=== PATIENT | male | born 1975 | race Caucasian/White ===

== ENCOUNTER 2020-12-09 18:00 | Observation (INO) ==
[2020-12-09] MEDS ORDERED: KETOROLAC TROMETHAMINE 15 MG/ML VIAL IV ONE ×2 (20:26→23:02)
[2020-12-09] MEDS ORDERED: ONDANSETRON INJ 2 MG/ML 2 ML VIAL IV STA (20:26)
[2020-12-09] MEDS ORDERED: SODIUM CHLORIDE 0.9% 1000ML 2,000 ML IV ONE (20:26)
[2020-12-09] MEDS ORDERED: GI COCKTAIL ED USE PO ONE (20:26)
--- NOTE | 2020-12-09 20:26 | Emergency Department Note ---
Impression & Plan Abdominal pain, Cholelithiasis ED Provider Note NAME: CHAUNCEY PATIÑO AGE: 45 SEX: M : 1975 ARRIVES VIA: Walk-In INFORMANT: Patient ED PROVIDER(S): Benny Levine DO CHIEF COMPLAINT: abdominal pain HPI: Patient is a 45-year-old male who presents ER for right mid abdominal pain. This started yesterday while he was at [facility] from alcohol. He has been there for over a week. He denies any headache or change in vision. No chest pain or shortness of breath. Belly pain is worse with eating or drinking. Does have a history of gallstones. He has been seen for this twice before in the past. No other exacerbating or remitting factors. ROS: See above HPI for pertinent positives & negatives. A total of 10 systems reviewed and were otherwise negative. PAST MEDICAL HISTORY:See Below PAST SURGICAL HISTORY:See Below FAMILY HISTORY:See Below SOCIAL HISTORY:See Below HOME MEDICATIONS:See Below ALLERGIES:See Below VITALS:See Below PHYSICAL EXAMINATION: GENERAL: Sitting up in bed, alert, well appearing, well nourished, no distress, non-toxic EYE EXAM: normal conjunctiva. OROPHARYNX: no exudate, no erythema, lips, buccal mucosa, and tongue normal and mucous membranes are moist NECK: supple, no nuchal rigidity, no adenopathy, non-tender LUNGS: Clear to auscultation. Normal chest wall mechanics HEART: no murmurs, S1 normal and S2 normal ABDOMEN: abdomen soft, mild diffuse tenderness, normo-active bowel sounds, no masses, no rebound or guarding. UPPER EXTREMITIES: upper extremities are grossly normal. LOWER EXTREMITIES: No pitting edema. NEURO EXAM: Normal sensorium, cranial nerves II-XII grossly intact, normal speech, no gross weakness of arms, no gross weakness of legs. MEDICAL DECISION MAKING: Patient is a 45-year-old male who presents ER for right upper quadrant abdominal pain associate with nausea vomiting. IV was established blood work was obtained. Labs show no significant leukocytosis or anemia. BMP with mild hypokalemia. LFTs bilirubin and lipase was unremarkable. UA was clean. CT abdomen pelvis showed diverticulosis with moderate sigmoid wall thickening. Question diverticulitis or other nonspecific colitis. There is also cholelithiasis with a moderately distended gallbladder. Following this ultrasound was obtained which showed a distended gallbladder, cholelithiasis, mild wall thickening, trace pericholecystic fluid and a diffusely tender abdomen. Patient was given a dose of IV Zosyn. Discussed with general surgery Sil Taveras who admitted the patient for observation. Observation Status: Indication: abdominal pain Patient with no pertinent family history, was seen first at 1845 hrs and was necessary in order to determine medical stability and avoid unnecessary admission. Upon reevaluation, 8 hours of observation revealed that the patient should be admitted. Disposition date and time 12/10/2020 at 2:30 AM. Triage Nursing notes reviewed. Limited review of prior medical records performed Vital Signs: reviewed and remarkable for HTN Differential diagnosis: Differential diagnoses includes but is not limited to gastritis, peptic ulcer disease, GERD, gallbladder disease, pancreatitis, small bowel obstruction, acute coronary syndrome, pericarditis, ischemic bowel, irritable bowel disease, irritable bowel syndrome, appendicitis, diverticulitis, malignancy, hernia, urinary tract infection, torsion, [/ectopic (if female)], perforation, trauma, infectious. ER treatment provided: See below Diagnostics interpreted by me: ECG: Sinus rhythm rate of 69 Normal axis PVCs QTC 441 Cardiac Monitoring: An order was placed for continuous cardiac monitoring. The monitor shows a rate of 62 with sinus rhythm. Laboratory studies: As stated above and show below. Imaging studies: US RUQ: Mild distended gallbladder, and cholelithiasis, mild wall thickening, trace pericholecystic fluid, diffusely tender in the abdomen, without sonographic Mack's. Findings are nonspecific, acute cholecystitis difficult to entirely exclude. Equivocal adenomyomatosis of the gallbladder wall. No ductal dilatation, CBD 4.5 mm. No hydronephrosis of the right kidney. Fatty liver. Nonvisualized pancreas due to bowel gas. CT ABDOMEN & PELVIS With Contrast: Diverticulosis and moderate sigmoid wall thickening, could reflect acute diverticulitis, or other nonspecific colitis, correlate clinically. Cholelithiasis in a moderately distended gallbladder, nonspecific, correlate clinically as acute cholecystitis not excluded. No SBO, free air or free fluid. Normal appendix. Fatty liver. Mild bibasilar atelectasis or infiltrate. Consultation(s): Discussed with Sil Taveras patient was admitted for observation Procedures: none Critical Care: None Past Med/Surg History Social History Smoking Status: Current every day smoker Feels Safe at Home: Yes Allergies Allergies Allergy/AdvReac Type Severity Reaction Status Date / Time No Known Allergies Allergy Unverified 12/09/20 21:34 Home Meds Home Medications Medication Instructions Recorded Confirmed clonidine HCl 0.1 mg tablet 0.1 mg PO TID PRN 12/09/20 12/09/20 cyanocobalamin (vitamin B-12) 1,000 mcg PO QAM 12/09/20 12/09/20 1,000 mcg tablet (Vitamin B-12) diazepam 10 mg tablet (Valium) 10 mg PO QAM 12/09/20 12/09/20 folic acid 1 mg tablet 1 mg PO QAM 12/09/20 12/09/20 gabapentin 300 mg capsule 300 mg PO TID 12/09/20 12/09/20 hydroxyzine pamoate 50 mg capsule 50 mg PO TID PRN 12/09/20 12/09/20 (Vistaril) mirtazapine 15 mg tablet (Remeron) 15 mg PO HS 12/09/20 12/09/20 multivitamin 1 tab PO QAM 12/09/20 12/09/20 naproxen 500 mg tablet 500 mg PO TID PRN 12/09/20 12/09/20 thiamine HCl (vitamin B1) 100 mg 100 mg PO QAM 12/09/20 12/09/20 tablet Results & Data (ED) Vital Signs Vital Signs - 24 hr 12/09/20 19:19 12/09/20 20:40 12/09/20 20:44 Temperature 35.9 C L Temperature Source Temporal Artery Scan Pulse Rate 80 69 Pulse Rate [Right Finger] Pulse Rate from SpO2 Sensor 70 Pulse Rhythm [Right Finger] Pulse Strength [Right Finger] Respiratory Rate 20 15 Respiratory Effort / Characteristics Respiratory Depth Normal Respiratory Pattern Blood Pressure 166/105 H 175/102 H Blood Pressure [Right Arm] Blood Pressure Mean 125 126 Blood Pressure Mean [Right Arm] Blood Pressure Position [Right Arm] Pulse Oximetry 99 100 99 Oxygen Delivery Method Room Air Room Air Sepsis Recent Fever Within 48 Hours No Sepsis New/Unexplained Change in Mental Status No Sepsis Action Taken by Nursing No Action Required 12/09/20 21:11 12/09/20 21:30 12/09/20 22:00 Temperature Temperature Source Pulse Rate 73 67 64 Pulse Rate [Right Finger] Pulse Rate from SpO2 Sensor 73 68 69 Pulse Rhythm [Right Finger] Pulse Strength [Right Finger] Respiratory Rate 13 23 16 Respiratory Effort / Characteristics Respiratory Depth Respiratory Pattern Blood Pressure 162/101 H 161/101 H 164/111 H Blood Pressure [Right Arm] Blood Pressure Mean 121 121 128 Blood Pressure Mean [Right Arm] Blood Pressure Position [Right Arm] Pulse Oximetry 99 99 98 Oxygen Delivery Method Sepsis Recent Fever Within 48 Hours Sepsis New/Unexplained Change in Mental Status Sepsis Action Taken by Nursing 12/09/20 22:15 12/09/20 22:30 12/09/20 23:53 Temperature Temperature Source Pulse Rate 64 Pulse Rate [Right Finger] 67 98 H Pulse Rate from SpO2 Sensor 62 Pulse Rhythm [Right Finger] Regular Pulse Strength [Right Finger] Normal Respiratory Rate 20 16 20 Respiratory Effort / Characteristics Respiratory Depth Respiratory Pattern Blood Pressure 182/113 H Blood Pressure [Right Arm] 164/111 H 162/107 H Blood Pressure Mean 136 Blood Pressure Mean [Right Arm] 128 125 Blood Pressure Position [Right Arm] Sitting Pulse Oximetry 99 99 98 Oxygen Delivery Method Room Air Sepsis Recent Fever Within 48 Hours Sepsis New/Unexplained Change in Mental Status Sepsis Action Taken by Nursing 12/10/20 00:45 12/10/20 01:58 Temperature Temperature Source Pulse Rate Pulse Rate [Right Finger] 63 64 Pulse Rate from SpO2 Sensor Pulse Rhythm [Right Finger] Pulse Strength [Right Finger] Respiratory Rate 20 20 Respiratory Effort / Characteristics Non-Labored Non-Labored Respiratory Depth Normal Normal Respiratory Pattern Regular Blood Pressure Blood Pressure [Right Arm] 156/96 H 173/104 H Blood Pressure Mean Blood Pressure Mean [Right Arm] 116 127 Blood Pressure Position [Right Arm] Sitting Pulse Oximetry 97 97 Oxygen Delivery Method Room Air Room Air Sepsis Recent Fever Within 48 Hours Sepsis New/Unexplained Change in Mental Status Sepsis Action Taken by Nursing Laboratory Data Result diagrams: 12/09/20 20:18 12/09/20 22:12 Lab Results 12/09/20 12/09/20 12/09/20 Range/Units 20:18 20:18 20:22 WBC 5.13 (4.8-10.8) K/uL RBC 4.18 L (4.7-6.1) M/uL Hgb 14.5 (14.0-18.0) g/dL Hct 43.1 (42-52) % MCV 103.1 H (80-100) fL MCH 34.7 H (25-34) pg MCHC 33.6 (32-36) g/dL RDW Std Deviation 74.7 H (36.4-46.3) fL RDW Coeff of Yessi 19.8 H (11.5-14.5) % Plt Count 215 (130-400) K/uL MPV 11.5 H (7.4-10.4) fL Immature Gran % (Auto) 0.2 % Neut % (Auto) 63.8 % Lymph % (Auto) 21.2 % Luce % (Auto) 11.7 % Eos % (Auto) 2.1 % Baso % (Auto) 1.0 % Neut # (Auto) 3.27 (1.4-6.5) K/uL Lymph # (Auto) 1.09 L (1.2-3.4) K/uL Luce # (Auto) 0.60 H (0.11-0.59) K/uL Eos # (Auto) 0.11 (0-0.5) K/uL Baso # (Auto) 0.05 (0-0.2) K/uL Immature Gran # (Auto) 0.01 (0.00-0.02) K/uL Absolute Nucleated RBC 0.00 (0-0) K/uL Nucleated RBC % (auto) 0.0 % Sodium 142 (136-145) mmol/L Potassium (3.5-5.1) mmol/L Chloride 107 (98-107) mmol/L Carbon Dioxide 27 (21-32) mmol/L Anion Gap 7.0 (3-11) BUN 8 (7-18) mg/dl Creatinine 0.76 (0.6-1.4) mg/dl Est Cr Clr Drug Dosing 146.0 ml/min Est GFR ( Amer) 127.7 ml/min Est GFR (Non-Af Amer) 110.2 ml/min BUN/Creatinine Ratio 9.9 L (10-20) Glucose 98 (70-99) mg/dl Calcium 9.2 (8.5-10.1) mg/dl Total Bilirubin 0.5 (0.2-1) mg/dl AST (15-37) U/L ALT 31 (12-78) U/L Alkaline Phosphatase 125 H (45-117) U/L Troponin I < 0.015 (0-0.045) ng/ml Total Protein 7.4 (6.4-8.2) gm/dl Albumin 3.6 (3.4-5.0) gm/dl Globulin 3.8 (2.5-4.0) gm/dl Albumin/Globulin Ratio 1.0 (0.9-2) Lipase 174 (73-393) U/L Urine Color Dark Yellow Urine Appearance Clear (Clear) Urine pH 6.0 (4.5-7.5) Ur Specific Frederick 1.024 (1.000-1.030) Urine Protein Negative (Negative) Urine Glucose (UA) Negative (Negative) Urine Ketones Trace H (Negative) Urine Blood Negative (Negative) Urine Nitrite Negative (Negative) Urine Bilirubin Negative (Negative) Urine Urobilinogen Negative (Negative) Ur Leukocyte Esterase Negative (Negative) 12/09/20 Range/Units 22:12 WBC (4.8-10.8) K/uL RBC (4.7-6.1) M/uL Hgb (14.0-18.0) g/dL Hct (42-52) % MCV (80-100) fL MCH (25-34) pg MCHC (32-36) g/dL RDW Std Deviation (36.4-46.3) fL RDW Coeff of Yessi (11.5-14.5) % Plt Count (130-400) K/uL MPV (7.4-10.4) fL Immature Gran % (Auto) % Neut % (Auto) % Lymph % (Auto) % Luce % (Auto) % Eos % (Auto) % Baso % (Auto) % Neut # (Auto) (1.4-6.5) K/uL Lymph # (Auto) (1.2-3.4) K/uL Luce # (Auto) (0.11-0.59) K/uL Eos # (Auto) (0-0.5) K/uL Baso # (Auto) (0-0.2) K/uL Immature Gran # (Auto) (0.00-0.02) K/uL Absolute Nucleated RBC (0-0) K/uL Nucleated RBC % (auto) % Sodium (136-145) mmol/L Potassium 3.4 L (3.5-5.1) mmol/L Chloride (98-107) mmol/L Carbon Dioxide (21-32) mmol/L Anion Gap (3-11) BUN (7-18) mg/dl Creatinine (0.6-1.4) mg/dl Est Cr Clr Drug Dosing ml/min Est GFR ( Amer) ml/min Est GFR (Non-Af Amer) ml/min BUN/Creatinine Ratio (10-20) Glucose (70-99) mg/dl Calcium (8.5-10.1) mg/dl Total Bilirubin (0.2-1) mg/dl AST 32 (15-37) U/L ALT (12-78) U/L Alkaline Phosphatase (45-117) U/L Troponin I (0-0.045) ng/ml Total Protein (6.4-8.2) gm/dl Albumin (3.4-5.0) gm/dl Globulin (2.5-4.0) gm/dl Albumin/Globulin Ratio (0.9-2) Lipase (73-393) U/L Urine Color Urine Appearance (Clear) Urine pH (4.5-7.5) Ur Specific Frederick (1.000-1.030) Urine Protein (Negative) Urine Glucose (UA) (Negative) Urine Ketones (Negative) Urine Blood (Negative) Urine Nitrite (Negative) Urine Bilirubin (Negative) Urine Urobilinogen (Negative) Ur Leukocyte Esterase (Negative) Administered Medications Discontinued Medications Al Hydrox/Mg Hydrox/Simethicone (Gi Cocktail Ed Use) 1 dose PO ONE ONE Stop: 12/09/20 20:27 Last Admin: 12/09/20 20:43 Dose: 1 dose Documented by: [id number] Ciprofloxacin (Ciprofloxacin 500 Mg Tab) 500 mg PO NOW STA Stop: 12/09/20 23:19 Last Admin: 12/09/20 23:51 Dose: 500 mg Documented by: [id number] Clonidine HCl (Clonidine Hcl 0.1 Mg Tab) 0.1 mg PO NOW ONE Stop: 12/10/20 00:42 Last Admin: 12/10/20 00:46 Dose: 0.1 mg Documented by: [id number] Clonidine HCl (Clonidine Hcl 0.1 Mg Tab) Confirm Administered Dose 0.1 mg .ROUTE .STK-MED ONE Stop: 12/10/20 00:43 Last Admin: 12/10/20 00:46 Dose: Not Given Documented by: [id number] Famotidine (Famotidine 20mg/5ml Iv Push) 20 mg IV ONE STA Stop: 12/09/20 22:46 Last Admin: 12/09/20 22:50 Dose: 20 mg Documented by: [id number] Sodium Chloride (Nss 1000ml) 2,000 mls @ 999 mls/hr IV .Q2H1M ONE Stop: 12/09/20 22:26 Last Infusion: 12/09/20 22:45 Dose: 0 mls/hr Documented by: [id number] Admin: 12/09/20 20:43 Dose: 999 mls/hr Documented by: [id number] Ioversol (Optiray 320 100ml) 94 ml IV ONCE ONE Stop: 12/09/20 21:02 Last Admin: 12/09/20 21:01 Dose: 94 ml Documented by: [id number] Ketorolac Tromethamine (Ketorolac Tromethamine 15 Mg/Ml Vial) 10 mg IV NOW ONE Stop: 12/09/20 20:27 Last Admin: 12/09/20 20:43 Dose: 10 mg Documented by: [id number] Ketorolac Tromethamine (Ketorolac Tromethamine 15 Mg/Ml Vial) 15 mg IV NOW ONE Stop: 12/09/20 23:03 Last Admin: 12/09/20 23:09 Dose: 15 mg Documented by: [id number] Metronidazole (Metronidazole 500 Mg Tab) 500 mg PO NOW STA Stop: 12/09/20 23:19 Last Admin: 12/09/20 23:51 Dose: 500 mg Documented by: [id number] Morphine Sulfate (Morphine Sulfate 4 Mg/Ml 1 Ml Carp\Vial) 4 mg IV NOW STA Stop: 12/10/20 01:54 Last Admin: 12/10/20 01:57 Dose: 4 mg Documented by: [id number] Morphine Sulfate (Morphine Sulfate 4 Mg/Ml 1 Ml Carp\Vial) Confirm Administered Dose 4 mg .ROUTE .STK-MED ONE Stop: 12/10/20 01:56 Last Admin: 12/10/20 01:58 Dose: Not Given Documented by: [id number] Nicotine (Nicotine 14 Mg/24 Hr Patch) 14 mg TD NOW STA Stop: 12/09/20 21:14 Last Admin: 12/09/20 21:23 Dose: 14 mg Documented by: [id number] Ondansetron HCl (Ondansetron Inj 2 Mg/Ml 2 Ml Vial) 4 mg IV NOW STA Stop: 12/09/20 20:27 Last Admin: 12/09/20 20:43 Dose: 4 mg Documented by: [id number] Ondansetron HCl (Ondansetron Inj 2 Mg/Ml 2 Ml Vial) 4 mg IV NOW STA Stop: 12/10/20 01:18 Last Admin: 12/10/20 01:26 Dose: Not Given Documented by: [id number] Discharge Plan Visit Data Chief Complaint: Abdominal Pain Stated Complaint: ABDOMINAL PAIN ED Provider: Benny Levine Discharge Problem: Abdominal pain, Cholelithiasis Forms Stand Alone Forms: [facility] Helpmycash Prescriptions Prescriptions: No Action multivitamin Tablet 1 tab PO QAM RF: 0 clonidine HCl 0.1 mg tablet 0.1 mg PO TID PRN (Reason: anxiety/ restlessness) RF: 0 cyanocobalamin (vitamin B-12) [Vitamin B-12] 1,000 mcg Tablet 1,000 mcg PO QAM RF: 0 thiamine HCl (vitamin B1) 100 mg Tablet 100 mg PO QAM RF: 0 hydroxyzine pamoate [Vistaril] 50 mg Capsule 50 mg PO TID PRN (Reason: Anxiety) RF: 0 folic acid 1 mg Tablet 1 mg PO QAM RF: 0 mirtazapine [Remeron] 15 mg Tablet 15 mg PO HS RF: 0 naproxen 500 mg Tablet 500 mg PO TID PRN (Reason: Pain) RF: 0 gabapentin 300 mg capsule 300 mg PO TID RF: 0 diazepam [Valium] 10 mg Tablet 10 mg PO QAM RF: 0 Referrals Referrals: PCP,NO [Primary Care Provider] - Discharge Problem: Abdominal pain Qualifiers: Abdominal location: unspecified location Qualified Code(s): R10.9 - Unspecified abdominal pain Cholelithiasis Qualifiers: Cholelithiasis location: other site Biliary obstruction: without biliary obstruction Qualified Code(s): K80.80 - Other cholelithiasis without obstruction
[2020-12-09 20:34] LABS: Appearance Urine Clear (Clear); Bilirubin Urine Negative (Negative); Blood Urine Negative (Negative); Color Urine Dark Yellow; Glucose Urine UA Negative (Negative); Ketones Urine Trace (Negative); Leukocyte Esterase Urine Negative (Negative); Nitrite Urine Negative (Negative); Protein Urine Negative (Negative); Specific Gravity Urine 1.024 (1.000-1.030); Urobilinogen Urine Negative (Negative)
[2020-12-09 20:50] LABS: Basophils # (auto) 0.05 K/uL (0-0.2); Eosinophils # (auto) 0.11 K/uL (0-0.5); Eosinophils % (auto) 2.1 %; Hematocrit (blood only) 43.1 % (42-52); Hemoglobin 14.5 g/dL (14.0-18.0); Immature Granulocytes # (auto) 0.01 K/uL (0.00-0.02); Immature Granulocytes % (auto) 0.2 %; Lymphocytes # (auto) 1.09 K/uL (1.2-3.4); Lymphocytes % (auto) 21.2 %; Mean Corpuscular Hemoglobin 34.7 pg (25-34); Mean Corpuscular Hgb Conc 33.6 g/dL (32-36); Mean Corpuscular Volume 103.1 fL (80-100); Mean Platelet Volume 11.5 fL (7.4-10.4); Monocytes % (auto) 11.7 %; Neutrophils # (auto) 3.27 K/uL (1.4-6.5); Neutrophils % (auto) 63.8 %; Platelet Count 215 K/uL (130-400); RDW Coefficient of Variation 19.8 % (11.5-14.5); RDW Standard Deviation 74.7 fL (36.4-46.3); Red Blood Count 4.18 M/uL (4.7-6.1); White Blood Count 5.13 K/uL (4.8-10.8)
[2020-12-09 20:53] LABS: Albumin Level 3.6 gm/dl (3.4-5.0); BUN Creatinine Ratio 9.9 (10-20); Blood Urea Nitrogen 8 mg/dl (7-18); Calcium 9.2 mg/dl (8.5-10.1); Carbon Dioxide 27 mmol/L (21-32); Chloride 107 mmol/L (98-107); Est GFR (African American) 127.7 ml/min; Est GFR (Non-African American) 110.2 ml/min; Glucose 98 mg/dl (70-99); Lipase 174 U/L (73-393); Sodium 142 mmol/L (136-145)
[2020-12-09] MEDS ORDERED: OPTIRAY 320 100ml IV ONE (21:01)
[2020-12-09 21:10] LABS: Alanine Aminotransferase 31 U/L (12-78); Alkaline Phosphatase 125 U/L (45-117); Bilirubin,Total 0.5 mg/dl (0.2-1); Globulin 3.8 gm/dl (2.5-4.0); Total Protein 7.4 gm/dl (6.4-8.2); Troponin I < 0.015 ng/ml (0-0.045)
[2020-12-09] MEDS ORDERED: NICOTINE 14 MG/24 HR PATCH TD STA (21:13)
[2020-12-09 22:32] LABS: Potassium 3.4 mmol/L (3.5-5.1)
[2020-12-09] MEDS ORDERED: FAMOTIDINE 20MG/5ML IV PUSH IV STA (22:45)
[2020-12-09] MEDS ORDERED: FAMOTIDINE 20 MG in SYRINGE 3 ML IV SCH (23:15)
[2020-12-09] MEDS ORDERED: CIPROFLOXACIN 500 MG TAB PO STA (23:18)
[2020-12-09] MEDS ORDERED: metroNIDAZOLE 500 MG TAB PO STA (23:18)
[2020-12-10] MEDS ORDERED: cloNIDine HCL 0.1 MG TAB PO ONE (00:41)
[2020-12-10] MEDS ORDERED: cloNIDine HCL 0.1 MG TAB ONE (00:42)
[2020-12-10] MEDS ORDERED: ONDANSETRON INJ 2 MG/ML 2 ML VIAL IV STA (01:17)
[2020-12-10] MEDS ORDERED: MoRPHine SULFATE 4 MG/ML 1 ML CARP\\VIAL IV STA (01:53)
[2020-12-10] MEDS ORDERED: MoRPHine SULFATE 4 MG/ML 1 ML CARP\\VIAL ONE (01:55)
[2020-12-10] MEDS ORDERED: PIPERACILL/TAZOBAC CONSULT ACTIVE PRN (02:23)
[2020-12-10] MEDS ORDERED: PIPERACILLIN/TAZOBACTAM 4.5 GM/120 ML BAG IV ONE (02:23)
[2020-12-10] MEDS ORDERED: MoRPHine SULFATE 2 MG/ML CARP IV PRN (05:28)
[2020-12-10] MEDS ORDERED: ONDANSETRON INJ 2 MG/ML 2 ML VIAL IV PRN (05:28)
[2020-12-10] MEDS ORDERED: MoRPHine SULFATE 4 MG/ML 1 ML CARP\\VIAL IV PRN (05:28)
[2020-12-10] MEDS ORDERED: hydrOXYzine HCl 25 MG TAB PO PRN (05:28)
[2020-12-10] MEDS: LACTATED RINGER'S 1,000 ML IV SCH ×2 (05:40→16:37)
--- NOTE | 2020-12-10 07:33 | Ultrasound Report ---
US gallbladder CLINICAL HISTORY: Abdominal pain COMPARISON STUDY: CT scan dated 12/09/2020 FINDINGS: The pancreas was obscured. The liver was of increased echogenicity, nonspecific finding most often seen in hepatic steatosis. There is no right-sided hydronephrosis. There is cholelithiasis. The gallbladder was mildly distended There is trace pericholecystic fluid ve rsus gallbladder wall edema. There is no ductal dilatation. The common bile duct measured 5 mm. There is probable adenomyomatosis involving the gallbladder fundus. IMPRESSION: 1. Cholelithiasis 2. Mild gallbladder distention with trace pericholecystic fluid/gallbladder wall edema. If there is c linical concern over the presence of acute cholecystitis, a nuclear medicine hepatobiliary scan could be obtained in follow-up to evaluate cystic duct patency 3. Probable adenomyomatosis 4. No ductal dilatation 5. Suspected hepatic steatosis 6. Nondiagnostic evaluation of the pancreas ACT 112: Negative or not required by law. Electronically signed by: Gamaliel Soto M.D. 12/10/2020 7:31 AM
[2020-12-10] MEDS: AMPICILLIN/SULBACTAM SOD 1,500 MG in 0.9 % SODIUM CHLORIDE 100 ML IV SCH ×3 (08:12→20:50)
[2020-12-10] MEDS: FAMOTIDINE 20 MG in SYRINGE 3 ML IV SCH ×2 (08:16→21:30)
[2020-12-10] MEDS: diazePAM 5 MG TABLET PO SCH (08:17)
[2020-12-10] MEDS: NICOTINE 14 MG/24 HR PATCH TD SCH (08:17)
--- NOTE | 2020-12-10 08:17 | CT Scan Report ---
CT SCAN OF THE ABDOMEN AND PELVIS WITH IV CONTRAST CLINICAL HISTORY: Right-sided abdominal pain. COMPARISON STUDY: No priors. TECHNIQUE: Following the IV administration of 94 cc of Optiray 320, CT scan of the abdomen and pelvi s is performed from the lung bases to the proximal femora. Images are reviewed in the axial, sagittal , and coronal planes. IV contrast was administered without complication. A dose lowering technique wa s utilized adhering to the principles of ALARA. CT DOSE: 599.37 mGy.cm FINDINGS: Lung bases: The heart is normal in size and without pericardial effusion. Emphysematous change is sug gested. There are trace pleural effusions with dependent atelectasis. There is a tiny hiatal hernia. Liver: The contrast-enhanced liver is mildly enlarged measuring 18.4 cm in length. The liver demonstr ates diffusely diminished attenuation consistent with hepatic steatosis. Fatty sparing is seen adjace nt to gallbladder fossa. There is no intrahepatic biliary ductal dilatation. The hepatic veins and po rtal veins are patent. Gallbladder: The gallbladder is distended and there are numerous calcified gallstones. There is mild gallbladder wall thickening and pericholecystic inflammation. Findings are concerning for acute gilberto cystitis. Spleen: Normal in size and attenuation. Pancreas: Unremarkable. Adrenal glands: Unremarkable. Kidneys: The contrast enhanced kidneys are normal in size and without hydronephrosis. The kidneys enh ance symmetrically. Abdominal vasculature: The abdominal aorta is normal in course and caliber noting advanced atheroscle rotic calcification. There is at least moderate stenosis of the right common iliac artery seen on danita ge #[id number]. There is a least moderate stenosis of the left common iliac artery seen on image #328. Bowel: There is moderate to advanced colonic diverticulosis without CT evidence of acute diverticulit is. Mild wall thickening the sigmoid colon is likely related to diverticulosis. No bowel obstruction is seen. Submucosal fat deposition throughout the colon is nonspecific but can be seen in setting of chronic inflammation. The appendix is well-visualized and normal. Peritoneum: There is no intraperitoneal free air or abdominal ascites. There is a small fat-containin g umbilical hernia. Lymphadenopathy: None. Pelvic viscera: The bladder, prostate, and seminal vesicles are normal as imaged. Skeletal structures: No lytic or blastic lesions are seen. IMPRESSION: 1. Cholelithiasis with findings suggestive of acute cholecystitis. Correlation with clinical findings and liver function studies will be required. Consider right upper quadrant ultrasound for further as sessment. 2. Hepatomegaly and hepatic steatosis. 3. Trace pleural effusions. 4. Suspect emphysema. 5. Moderate to advanced colonic diverticulosis without definitive CT evidence of acute diverticulitis . 6. Wall thickening of the sigmoid colon is nonspecific and likely related to chronic diverticular dis ease. Consider follow-up colonoscopy for further assessment of the colon. 7. Age advanced atherosclerotic calcification of the abdominal aorta. 8. 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 9. Additional findings as above. ACT 112: Positive. There are findings on this exam that require communication between the performing entity and the patient following Patient Test Result Information Act ([place] Act 112) guidelines. Electronically signed by: Catracho Horton M.D. 12/10/2020 8:15 AM
[2020-12-10] MEDS: THIAMINE HCL 100 MG TAB PO SCH (08:18)
[2020-12-10] MEDS: CYANOCOBALAMIN 500 MCG TABLET (VITAMIN B-12) PO SCH (08:18)
[2020-12-10] MEDS: GABAPENTIN 300 MG CAP PO SCH ×3 (08:18→21:00)
[2020-12-10] MEDS: FOLIC ACID 1 MG TAB PO SCH (08:18)
--- NOTE | 2020-12-10 13:21 | Electrocardiogram Report ---
Test Reason : Blood Pressure : / mmHG Vent. Rate : 069 BPM Atrial Rate : 069 BPM P-R Int : 158 ms QRS Dur : 080 ms QT Int : 412 ms P-R-T Axes : 007 037 013 degrees QTc Int : 441 ms Sinus rhythm with occasional Premature ventricular complexes Otherwise normal ECG No previous ECGs available Confirmed by Valeriano Aguirre ([id number]) on 12/10/2020 1:20:56 PM Referred By: REFERRED SELF Confirmed By:Valeriano Aguirre
--- NOTE | 2020-12-10 18:19 | Surgery Consultation ---
Date of Consultation December 10, 2020 Assessment & Plan (1) Abdominal pain: (2) Cholelithiasis: (3) Acute cholecystitis due to biliary calculus: pt is a 45 year-old male who presents with 2 days history RUQ pain, IMP: acute cholecystitis, cholelithiasis, plan, I recommend to do laparoscopic cholecystectomy, possible open or cholangiogram tomorrow, D/W benefits, risks and alternatives of the surgery, the risks - infection, bleeding, injury other organs, may need ERCP, pt understood, he agrees with the surgery, he signed informed consent, I answered all questions, NPO after MN, History of Present Illness Reason for Consultation: abdominal pain Requesting Physician: Benny Zarco Attending Physician: Sil Taveras MD History of Present Illness CHIEF COMPLAINT: abdominal pain HPI: Patient is a 45-year-old male who presents ER for right mid abdominal pain. This started yesterday while he was at [facility] from alcohol. He has been there for over a week. He denies any headache or change in vision. No chest pain or shortness of breath. Belly pain is worse with eating or drinking. Does have a history of gallstones. He has been seen for this twice before in the past. No other exacerbating or remitting factors. I got a call for consult abdominal pain acute cholecystitis, I reviewed pt's H/P, labs, U/S study and CT scan with pt, pt feels better, less RUQ pain, no nausea, no vomiting, Allergies Allergy/AdvReac Type Severity Reaction Status Date / Time No Known Allergies Allergy Unverified 12/09/20 21:34 Home Medications Medication Instructions Recorded Confirmed Type clonidine HCl 0.1 mg tablet 0.1 mg PO TID PRN 12/09/20 12/09/20 History cyanocobalamin (vitamin B-12) 1,000 mcg PO QAM 12/09/20 12/09/20 History 1,000 mcg tablet (Vitamin B-12) diazepam 10 mg tablet (Valium) 10 mg PO QAM 12/09/20 12/09/20 History folic acid 1 mg tablet 1 mg PO QAM 12/09/20 12/09/20 History gabapentin 300 mg capsule 300 mg PO TID 12/09/20 12/09/20 History hydroxyzine pamoate 50 mg capsule 50 mg PO TID PRN 12/09/20 12/09/20 History (Vistaril) mirtazapine 15 mg tablet (Remeron) 15 mg PO HS 12/09/20 12/09/20 History multivitamin 1 tab PO QAM 12/09/20 12/09/20 History naproxen 500 mg tablet 500 mg PO TID PRN 12/09/20 12/09/20 History thiamine HCl (vitamin B1) 100 mg 100 mg PO QAM 12/09/20 12/09/20 History tablet Patient History Social History Smoking Status: Heavy tobacco smoker Do You Dip or Chew Tobacco: No; Hx Alcohol Use: Yes Hx Substance Use: No Preferred Language: Bulgarian Communication Ability: Effective Detail Supervisor Required: No Beliefs That Will Affect Care: None marital status: Single Current Living Situation: Alone Other Information That Helps Us Care for You: No Feels Safe at Home: Yes Safety Concerns: Feels Safe At This Time Assistive Devices: None Review of Systems Constitutional: as per Subjective / HPI Eyes: as per Subjective / HPI Respiratory: as per Subjective / HPI Cardiovascular: as per Subjective / HPI Gastrointestinal: + abdominal pain (pt had abdominal apin 6 months ago the pain is located at RUQ, and LLQ, pt has been diagnosised diverticulitis, in the past, ) Musculoskeletal: right clavicle surgery Neurologic: as per Subjective / HPI Psychiatric: as per Subjective / HPI Hematologic / Lymphatic: as per Subjective / HPI Physical Exam Constitutional: WD/WN, vitals as above Neck: trachea midline, no thyromegaly Respiratory: normal respiratory effort, lungs clear to auscultation Cardiovascular: RRR, no murmur, no edema Gastrointestinal (Abdomen): soft, mild tenderness at RUQ, no rebound pain, no distend, BS + Musculoskeletal: no cyanosis or clubbing, extremities motor strength 5/5 Neurologic: patellar DTR's 2+ bilat, sensation intact Psychiatric: A+Ox3, euthymic affect Results & Data ([facility]) Vital Signs (Past 12 Hours) Vital Signs Temp Pulse Resp BP Pulse Ox 12/10/20 14:58 36.7 C 77 18 165/99 H 96 Laboratory Results Abnormal lab results 12/09/20 12/09/20 12/09/20 Range/Units 20:18 20:18 20:22 RBC 4.18 L (4.7-6.1) M/uL MCV 103.1 H (80-100) fL MCH 34.7 H (25-34) pg RDW Std Deviation 74.7 H (36.4-46.3) fL RDW Coeff of Yessi 19.8 H (11.5-14.5) % MPV 11.5 H (7.4-10.4) fL Lymph # (Auto) 1.09 L (1.2-3.4) K/uL [place] # (Auto) 0.60 H (0.11-0.59) K/uL Potassium (3.5-5.1) mmol/L BUN/Creatinine Ratio 9.9 L (10-20) Alkaline Phosphatase 125 H (45-117) U/L Urine Ketones Trace H (Negative) 12/09/20 Range/Units 22:12 RBC (4.7-6.1) M/uL MCV (80-100) fL MCH (25-34) pg RDW Std Deviation (36.4-46.3) fL RDW Coeff of Yessi (11.5-14.5) % MPV (7.4-10.4) fL Lymph # (Auto) (1.2-3.4) K/uL [place] # (Auto) (0.11-0.59) K/uL Potassium 3.4 L (3.5-5.1) mmol/L BUN/Creatinine Ratio (10-20) Alkaline Phosphatase (45-117) U/L Urine Ketones (Negative) Diagnostic Findings US gallbladder CLINICAL HISTORY: Abdominal pain COMPARISON STUDY: CT scan dated 12/09/2020 FINDINGS: The pancreas was obscured. The liver was of increased echogenicity, nonspecific finding most often seen in hepatic steatosis. There is no right-sided hydronephrosis. There is cholelithiasis. The gallbladder was mildly distended There is trace pericholecystic fluid versus gallbladder wall edema. There is no ductal dilatation. The common bile duct measured 5 mm. There is probable adenomyomatosis involving the gallbladder fundus. IMPRESSION: 1. Cholelithiasis 2. Mild gallbladder distention with trace pericholecystic fluid/gallbladder wall edema. If there is clinical concern over the presence of acute cholecystitis, a nuclear medicine hepatobiliary scan could be obtained in follow-up to evaluate cystic duct patency 3. Probable adenomyomatosis 4. No ductal dilatation 5. Suspected hepatic steatosis 6. Nondiagnostic evaluation of the pancreas CT SCAN OF THE ABDOMEN AND PELVIS WITH IV CONTRAST CLINICAL HISTORY: Right-sided abdominal pain. COMPARISON STUDY: No priors. TECHNIQUE: Following the IV administration of 94 cc of Optiray 320, CT scan of the abdomen and pelvis is performed from the lung bases to the proximal femora. Images are reviewed in the axial, sagittal, and coronal planes. IV contrast was administered without complication. A dose lowering technique was utilized a dhering to the principles of ALARA. CT DOSE: 599.37 mGy.cm FINDINGS: Lung bases: The heart is normal in size and without pericardial effusion. Emphysematous change is suggested. There are trace pleural effusions with dependent atelectasis. There is a tiny hiatal hernia. Liver: The contrast-enhanced liver is mildly enlarged measuring 18.4 cm in length. The liver demonstrates diffusely diminished attenuation consistent with hepatic steatosis. Fatty sparing is seen adjacent to gallbladder fossa. There is no intrahepatic biliary ductal dilatation. The hepatic veins and portal veins are patent. Gallbladder: The gallbladder is distended and there are numerous calcified gallstones. There is mild gallbladder wall thickening and pericholecystic inflammation. Findings are concerning for acute cholecystitis. Spleen: Normal in size and attenuation. Pancreas: Unremarkable. Adrenal glands: Unremarkable. Kidneys: The contrast enhanced kidneys are normal in size and without hydronephrosis. The kidneys enhance symmetrically. Abdominal vasculature: The abdominal aorta is normal in course and caliber noting advanced atherosclerotic calcification. There is at least moderate stenosis of the right common iliac artery seen on image #300. There is a least moderate stenosis of the left common iliac artery seen on image #328. Bowel: There is moderate to advanced colonic diverticulosis without CT evidence of acute diverticulitis. Mild wall thickening the sigmoid colon is likely related to diverticulosis. No bowel obstruction is seen. Submucosal fat deposition throughout the colon is nonspecific but can be seen in setting of chronic inflammation. The appendix is well-visualized and normal. Peritoneum: There is no intraperitoneal free air or abdominal ascites. There is a small fat-containing umbilical hernia. Lymphadenopathy: None. Pelvic viscera: The bladder, prostate, and seminal vesicles are normal as imaged. Skeletal structures: No lytic or blastic lesions are seen. IMPRESSION: 1. Cholelithiasis with findings suggestive of acute cholecystitis. Correlation with clinical findings and liver function studies will be required. Consider right upper quadrant ultrasound for further assessment. 2. Hepatomegaly and hepatic steatosis. 3. Trace pleural effusions. 4. Suspect emphysema. 5. Moderate to advanced colonic diverticulosis without definitive CT evidence of acute diverticulitis. 6. Wall thickening of the sigmoid colon is nonspecific and likely related to chronic diverticular disease. Consider follow-up colonoscopy for further assessment of the colon. 7. Age advanced atherosclerotic calcification of the abdominal aorta. 8. 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 9. Additional findings as above. (1) Abdominal pain Abdominal location: unspecified location Qualified Code(s): R10.9 - Unspecified abdominal pain (2) Cholelithiasis Biliary obstruction: without biliary obstruction Cholelithiasis location: other site Qualified Code(s): K80.80 - Other cholelithiasis without obstruction
[2020-12-10] MEDS: MIRTAZAPINE TAB 15 MG TAB PO SCH (21:00)
[2020-12-10] MEDS: METOPROLOL TARTRATE 25 MG TAB PO SCH (21:00)
[2020-12-11] MEDS: LACTATED RINGER'S 1,000 ML IV SCH ×2 (01:28→15:31)
[2020-12-11] MEDS: AMPICILLIN/SULBACTAM SOD 1,500 MG in 0.9 % SODIUM CHLORIDE 100 ML IV SCH ×4 (01:28→21:20)
[2020-12-11] MEDS ORDERED: GLYCOPYRROLATE 0.2 MG/ML VIAL ONE ×2 (08:51→10:08)
[2020-12-11] MEDS ORDERED: NEOSTIGMINE METHYLSULFATE 1 MG/ML 10ML VIAL ONE (08:51)
[2020-12-11] MEDS ORDERED: LIDOCAINE 2% 2 ML VIAL/AMP(20MG/ML) INFIL ONE (08:51)
[2020-12-11] MEDS ORDERED: MIDAZOLAM HCL 1 MG/ML 2ML VIAL ONE (08:51)
[2020-12-11] MEDS ORDERED: ONDANSETRON INJ 2 MG/ML 2 ML VIAL ONE (08:51)
[2020-12-11] MEDS ORDERED: fentaNYL citrate 100 MCG/2 ML VIAL ONE ×2 (08:51→10:05)
[2020-12-11] MEDS ORDERED: PROPOFOL IV EMULSION 10 MG/ML 20 ML VIAL IV ONE ×2 (08:51→09:54)
[2020-12-11] MEDS ORDERED: DEXAMETHASONE SOD INJ 4 MG/ML VIAL ONE (08:51)
--- NOTE | 2020-12-11 09:03 | Anesthesiology Consultation ---
Date of Service December 11, 2020 Assessment & Plan (1) Encounter for pre-operative examination: Chart Review Chart Review: Acceptable Risk for Surgery History Surgery Operation Date: 12/11/20 08:15 Proposed Procedures p Laparoscopic Cholecystectomy - Emanuel Gibson MD Height/Weight Height: 6 ft Weight: 90.8 kg Allergies Allergy/AdvReac Type Severity Reaction Status Date / Time No Known Allergies Allergy Unverified 12/09/20 21:34 Medications Home Medications Medication Instructions Recorded Confirmed Last Taken clonidine HCl 0.1 mg tablet 0.1 mg PO TID PRN 12/09/20 12/09/20 12/09/20 cyanocobalamin (vitamin B-12) 1,000 mcg PO QAM 12/09/20 12/09/20 12/09/20 1,000 mcg tablet (Vitamin B-12) diazepam 10 mg tablet (Valium) 10 mg PO QAM 12/09/20 12/09/20 12/07/20 last dose folic acid 1 mg tablet 1 mg PO QAM 12/09/20 12/09/20 12/09/20 gabapentin 300 mg capsule 300 mg PO TID 12/09/20 12/09/20 Unknown hydroxyzine pamoate 50 mg capsule 50 mg PO TID PRN 12/09/20 12/09/20 12/09/20 (Vistaril) mirtazapine 15 mg tablet (Remeron) 15 mg PO HS 12/09/20 12/09/20 12/08/20 multivitamin 1 tab PO QAM 12/09/20 12/09/20 12/09/20 naproxen 500 mg tablet 500 mg PO TID PRN 12/09/20 12/09/20 12/09/20 thiamine HCl (vitamin B1) 100 mg 100 mg PO QAM 12/09/20 12/09/20 12/09/20 tablet Active Medications Generic Name Dose Route Start Last Admin Trade Name Freq PRN Reason Stop Dose Admin Cyanocobalamin 1,000 mcg 12/10/20 09:00 12/10/20 08:18 Cyanocobalamin 500 Mcg Tablet (Vitamin B-12) PO 01/09/21 08:59 1,000 mcg QAM SHAE Administration Diazepam 10 mg 12/10/20 09:00 12/10/20 08:17 Diazepam 5 Mg Tablet PO 01/09/21 08:59 10 mg QAM SHAE Administration Folic Acid 1 mg 12/10/20 09:00 12/10/20 08:18 Folic Acid 1 Mg Tab PO 01/09/21 08:59 1 mg QAM SHAE Administration Gabapentin 300 mg 12/10/20 09:00 12/10/20 21:00 Gabapentin 300 Mg Cap PO 01/09/21 08:59 300 mg TID SHAE Administration Lactated Ringer's 1,000 mls @ 100 mls/hr 12/10/20 05:28 12/11/20 01:28 Lr IV 01/09/21 05:27 100 mls/hr .Q10H SHAE Administration Ampicillin Sodium/Sulbactam 104 mls @ 200 mls/hr 12/10/20 08:00 12/11/20 09:02 Sodium 1,500 mg/ Sodium IV 12/20/20 07:59 200 mls/hr Chloride Q6H SHAE Administration Protocol Famotidine 20 mg/ Syringe 5 mls @ 2.5 mls/min 12/10/20 09:00 12/10/20 21:30 IV 01/09/21 08:59 2.5 mls/min Q12H SHAE Administration Metoprolol Tartrate 25 mg 12/10/20 21:00 12/10/20 21:00 Metoprolol Tartrate 25 Mg Tab PO 01/09/21 20:59 25 mg BID SHAE Administration Mirtazapine 15 mg 12/10/20 21:00 12/10/20 21:00 Mirtazapine Tab 15 Mg Tab PO 01/09/21 20:59 15 mg HS SHAE Administration Miscellaneous 1 ea 12/10/20 08:59 12/10/20 08:18 Remove Nicoderm Patch N/A 01/09/21 08:58 1 ea DAILY@[id number] SHAE Administration Nicotine 14 mg 12/10/20 09:00 12/10/20 08:17 Nicotine 14 Mg/24 Hr Patch TD 01/09/21 08:59 14 mg DAILY SHAE Administration Thiamine HCl 100 mg 12/10/20 09:00 12/10/20 08:18 Thiamine Hcl 100 Mg Tab PO 01/09/21 08:59 100 mg QAM SHAE Administration Past Medical History Medical History Alcohol abuse Past Surgical History Surgical History (Updated 12/11/20 @ 09:05 by Jose Manuel Burrows MD) No significant past surgical history Social History Smoking Status: Heavy tobacco smoker tobacco type: cigarettes Do You Dip or Chew Tobacco: No Hx Alcohol Use: Yes Alcohol Intake Frequency Comment: pt quit 5 days ago; pt was at an alcohol rehab prior to arrival in ED Hx Substance Use: No Physical Exam Vital Signs Last Vital Signs Temp 36.7 C 12/11/20 08:21 Pulse 72 12/11/20 08:21 Resp 17 12/11/20 08:21 BP 160/94 H 12/11/20 08:21 Pulse Ox 95 12/11/20 08:21 Testing Laboratory Results 12/09/20 20:18 12/09/20 22:12 Urine Color Dark Yellow 12/09/20 20:22 Urine Appearance Clear (Clear) 12/09/20 20:22 Urine pH 6.0 (4.5-7.5) 12/09/20 20:22 Ur Specific [place] 1.024 (1.000-1.030) 12/09/20 20:22 Urine Protein Negative (Negative) 12/09/20 20:22 Urine Glucose (UA) Negative (Negative) 12/09/20 20:22 Urine Ketones Trace (Negative) H 12/09/20 20:22 Urine Nitrite Negative (Negative) 12/09/20 20:22 Ur Leukocyte Esterase Negative (Negative) 12/09/20 20:22 Electrocardiogram Date: 12/09/20 Findings: + NSR @ (69 with PVC)
[2020-12-11] MEDS ORDERED: PROMETHAZINE HCL 12.5 MG in SODIUM CHLORIDE 0.9% 50 ML IV PRN (09:06)
[2020-12-11] MEDS ORDERED: ONDANSETRON INJ 2 MG/ML 2 ML VIAL IV PRN (09:06)
[2020-12-11] MEDS ORDERED: LABETALOL HCL IV 5 MG/ML 20ML IV PRN (09:06)
[2020-12-11] MEDS ORDERED: KETOROLAC 30 MG/ML VIAL IV PRN (09:06)
[2020-12-11] MEDS ORDERED: ATROPINE SULFATE 0.1 MG/ML 10ML SYR IV PRN (09:06)
[2020-12-11] MEDS ORDERED: LIDOCAINE 1% LOCAL 20 ML VIAL ONE (09:20)
[2020-12-11] MEDS ORDERED: BUPIVACAINE 0.5 % 5 MG/1 ML MPF 30ML VIAL ONE (09:20)
[2020-12-11] MEDS ORDERED: ceFAZolin 2000MG 2,000 MG/15 ML SYR IV ONE (09:28)
--- NOTE | 2020-12-11 09:28 | History & Physical Bridge Note ---
Date of Service December 11, 2020 History & Physical Bridge Note I have examined the patient, reviewed the History & Physical and in the interval since the performance of the History & Physical I have noted the following changes of clinical significance: no changes noted
[2020-12-11] MEDS ORDERED: ROCURONIUM BROMIDE 10 MG/ML 5 ML VIAL IV ONE (09:58)
[2020-12-11] MEDS ORDERED: ESMOLOL HCL INJ 10 MG/ML 10ML VIAL IV ONE (10:04)
[2020-12-11] MEDS ORDERED: LARYING-O-JET KIT (LTA) ONE (10:07)
[2020-12-11] MEDS ORDERED: LABETALOL HCL IV 5 MG/ML 20ML IV ONE (10:16)
[2020-12-11] MEDS ORDERED: BACITRACIN OINT 15 GM TUBE ONE (11:20)
[2020-12-11] MEDS ORDERED: KETOROLAC 30 MG/ML VIAL ONE (11:24)
--- NOTE | 2020-12-11 11:33 | Post Operative Brief Note ---
Immediate Post Op Note v1 Date of Surgery December 11, 2020 Pre & Post Diagnosis Operation Date: 12/11/20 08:15 Pre-Op Diagnosis: Acute Cholecystitis, cholelithiasis Post-Op Diagnosis: Acute Cholecystitis, cholelithiasis I identified the patient and participated in the time-out.: Yes Procedure Operation Date: 12/11/20 08:15 Actual Procedures p Laparoscopic Cholecystectomy(Not Applicable) - Emanuel Gibson MD Surgeon Emanuel Gibson MD Miter Operator surgical processor Estimated Blood Loss 30 Findings Consistent with Post-Op Diagnosis acute cholecystitis, cholelithiasis, significant inflammation on gallbladder wall, Fluids 800ml Specimens gallbladder Anesthesia Type General Complications none Disposition Accompanied Patient To Recovery: Yes
[2020-12-11] MEDS: fentaNYL citrate 100 MCG/2 ML VIAL IV PRN ×8 (11:59→12:35)
--- NOTE | 2020-12-11 13:07 | Anesthesiology Progress Note ---
Date of Service December 11, 2020 Anesthesia Post Procedure Vital Signs Vital Signs: Temp Pulse Pulse Resp BP Pulse Ox 12/11/20 12:55 37.1 C 89 16 139/94 96 12/11/20 12:45 37.1 C 89 14 141/98 H 95 12/11/20 12:35 37.1 C 89 13 155/99 H 94 12/11/20 12:25 89 16 160/103 H 95 12/11/20 12:15 88 15 160/100 H 94 12/11/20 12:05 85 18 168/102 H 96 12/11/20 11:55 89 22 141/102 H 97 12/11/20 11:47 36.4 C L 98 H 12 161/104 H 97 12/11/20 09:13 36.9 C 77 20 161/102 H 95 12/11/20 08:21 36.7 C 72 17 160/94 H 95 12/10/20 23:00 36.6 C 96 H 16 134/89 96 12/10/20 20:55 97 H 153/99 H 12/10/20 14:58 36.7 C 77 18 165/99 H 96 Pain Intensity Right Upper Abdomen: Pain Intensity: 2 Transfer of Care Handoff Completed per policy Notes Mental Status: alert / awake / arousable Patient Amnestic to Procedure: Yes Nausea / Vomiting: adequately controlled Pain: adequately controlled Airway Patency, RR, SpO2: stable & adequate BP & HR: stable & adequate Hydration State: stable & adequate Anesthetic Complications: no major complications apparent
[2020-12-11] MEDS ORDERED: NAPROXEN 250 MG TAB PO PRN (13:16)
--- NOTE | 2020-12-11 13:43 | Anesthesiology Progress Note ---
Date of Service December 11, 2020 Anesthesia Post Procedure Vital Signs Vital Signs: Temp Pulse Pulse Resp BP Pulse Ox 12/11/20 13:17 36.5 C 94 H 18 137/90 93 12/11/20 12:55 37.1 C 89 16 139/94 96 12/11/20 12:45 37.1 C 89 14 141/98 H 95 12/11/20 12:35 37.1 C 89 13 155/99 H 94 12/11/20 12:25 89 16 160/103 H 95 12/11/20 12:15 88 15 160/100 H 94 12/11/20 12:05 85 18 168/102 H 96 12/11/20 11:55 89 22 141/102 H 97 12/11/20 11:47 36.4 C L 98 H 12 161/104 H 97 12/11/20 09:13 36.9 C 77 20 161/102 H 95 12/11/20 08:21 36.7 C 72 17 160/94 H 95 12/10/20 23:00 36.6 C 96 H 16 134/89 96 12/10/20 20:55 97 H 153/99 H 12/10/20 14:58 36.7 C 77 18 165/99 H 96 Pain Intensity Right Upper Abdomen: Pain Intensity: 2 Transfer of Care Handoff Completed per policy Notes Mental Status: alert / awake / arousable Patient Amnestic to Procedure: Yes Nausea / Vomiting: adequately controlled Pain: adequately controlled Airway Patency, RR, SpO2: stable & adequate BP & HR: stable & adequate Hydration State: stable & adequate Anesthetic Complications: no major complications apparent
[2020-12-11] MEDS: NICOTINE 14 MG/24 HR PATCH TD SCH (13:53)
[2020-12-11] MEDS: diazePAM 5 MG TABLET PO SCH (13:53)
[2020-12-11] MEDS: GABAPENTIN 300 MG CAP PO SCH ×3 (13:54→21:20)
[2020-12-11] MEDS: CYANOCOBALAMIN 500 MCG TABLET (VITAMIN B-12) PO SCH (13:55)
[2020-12-11] MEDS: METOPROLOL TARTRATE 25 MG TAB PO SCH ×2 (13:56→21:22)
[2020-12-11] MEDS: THIAMINE HCL 100 MG TAB PO SCH (13:56)
[2020-12-11] MEDS: FOLIC ACID 1 MG TAB PO SCH (13:56)
[2020-12-11] MEDS: FAMOTIDINE 20 MG in SYRINGE 3 ML IV SCH (14:59)
[2020-12-11] MEDS: oxyCODONE/ACETAMINOPHEN 5mg/325mg TAB PO PRN ×2 (17:02→21:19)
--- NOTE | 2020-12-11 17:31 | Operative Report (OR) ---
DATE OF PROCEDURE: 12/11/2020 PREOPERATIVE DIAGNOSES: Acute cholecystitis, cholelithiasis. POSTOPERATIVE DIAGNOSES: Acute cholecystitis, cholelithiasis. OPERATIVE PROCEDURE: Laparoscopic cholecystectomy. SURGEON: Emanuel Gibson MD. ANESTHESIA: General. ESTIMATED BLOOD LOSS: About 20 mL. FINDINGS: Acute cholecystitis, cholelithiasis with significant inflammation on the gallbladder wall. COMPLICATIONS: None. INDICATIONS FOR THE PROCEDURE: This is a 45-year-old gentleman who was admitted to the hospital for acute cholecystitis with cholelithiasis. I recommended to do a laparoscopic cholecystectomy, possibl e open, possible cholangiogram. I did talk to the patient about the benefit, risk, alternate procedu re. I indicated the risks may include, but not limited to, such as bleeding, infection, injury to co mmon bile duct, injury to other organs, bile leak, may need ERCP, incisional hernia. The patient und erstands. He signed informed consent and I answered all questions. DETAILS OF PROCEDURE: After we identified the patient and verified the procedure, we brought the pat ient to the OR, put the patient on the supine position. The patient received SCD on bilateral legs t o prevent DVT. Also, patient received 1.5 grams of Unasyn IV for prophylactic antibiotic. The patie nt received general anesthesia without difficulty. The abdomen was prepped and draped in routine tom rile fashion. After time-out, I injected local anesthesia by using 1% lidocaine mixed with 0.5% Chris ine just above the umbilicus. Then I made a small incision just above the umbilicus, opened fascia a nd opened peritoneum under direct vision, put a Juan Luis trocar in, connected to CO2 to create pneumope ritoneum, flow rate at 6 liters per minute, pressure not more than 14 mmHg. Once we got a nice pneumoperitoneum, we put a camera in, looked around the abdomen, it showed normal finding on the liver; however, the gallbladder showed significant inflammation on the gallbladder wal l that confirmed the diagnosis of acute cholecystitis. Once we confirmed the diagnosis of acute chol ecystitis, we put another two 5 mm trocars on the right upper quadrant and one 12 trocar on the epiga stric area. Once all trocars in, we used the grasper to hold the base of gallbladder, put in the dir ection to the diaphragm. Another grasper to hold the pouch of gallbladder, put the lateral to expose the triangle of Calot. The cystic duct was identified and mobilized. I put 10 mm metal clips on the proximal cystic duct x2 and 1 clip on the distal cystic duct. I then used a scissor for transection of cystic duct. Then, t he cystic artery was identified and mobilized. I put two 5 mm metal clips on the proximal cystic art josselyn and one on the distal cystic artery, then I used a scissor for transection of cystic artery; rech ecked, no active bleeding. Then, we used the Bovie to take down gallbladder from the liver bed; rech ecked, no active bleeding, no bile leak from liver bed. The gallbladder was removed through the catc h bag. Then, we reinserted the Juan Luis trocar in, connected to CO2 to create pneumoperitoneum, again looked a round the abdomen, no active bleeding, no bile leak from the liver bed and we removed all trocars und er direct vision. No active bleeding from the trocar site. Pneumoperitoneum was released. Then I c losed the umbilical incision fascial layer by using 0 Vicryl [id number] x2, closed subcutaneous layer by using 2-0 Vicryl interruptedly, closed skin by using 4-0 Vicryl continuous running, closed t he epigastric incision fascial layer by using 0 Vicryl [id number] x2, closed subcutaneous layer by using 2-0 Vicryl interruptedly, closed skin by using 3-0 Vicryl interruptedly, closed another two 5 mm trocar site of skin only by using 4-0 Vicryl. Then, we put the dressing on. The patient tolerated the procedure well. All instrument, needle and sponge counts were correct x2 a t the end of the case. The patient was transferred to recovery room in stable condition. After the procedure, I did talk to the patient about the OR finding and the procedure we did; he understands. The specimen was sent to pathology. Job ID: [id number]
[2020-12-11] MEDS: cloNIDine HCL 0.1 MG TAB PO PRN (19:45)
[2020-12-11] MEDS ORDERED: LORazepam 0.5 MG TAB PO STA (20:43)
[2020-12-11] MEDS: MIRTAZAPINE TAB 15 MG TAB PO SCH (21:21)
[2020-12-12] MEDS: LACTATED RINGER'S 1,000 ML IV SCH (00:06)
[2020-12-12] MEDS: oxyCODONE/ACETAMINOPHEN 5mg/325mg TAB PO PRN ×4 (01:36→15:04)
[2020-12-12] MEDS: AMPICILLIN/SULBACTAM SOD 1,500 MG in 0.9 % SODIUM CHLORIDE 100 ML IV SCH ×3 (01:37→15:04)
[2020-12-12] MEDS: cloNIDine HCL 0.1 MG TAB PO PRN ×2 (05:46→15:44)
[2020-12-12] MEDS: FOLIC ACID 1 MG TAB PO SCH (08:52)
[2020-12-12] MEDS: THIAMINE HCL 100 MG TAB PO SCH (08:52)
[2020-12-12] MEDS: diazePAM 5 MG TABLET PO SCH (08:52)
[2020-12-12] MEDS: GABAPENTIN 300 MG CAP PO SCH ×2 (08:53→15:04)
[2020-12-12] MEDS: CYANOCOBALAMIN 500 MCG TABLET (VITAMIN B-12) PO SCH (08:54)
[2020-12-12] MEDS: METOPROLOL TARTRATE 25 MG TAB PO SCH (08:54)
[2020-12-12] MEDS: NICOTINE 14 MG/24 HR PATCH TD SCH (08:55)
[2020-12-12] MEDS ORDERED: MULTIVITAMIN TAB PO SCH (09:00)
--- NOTE | 2020-12-12 10:31 | Progress Note ---
Date of Service December 12, 2020 Assessment & Plan (1) Abdominal pain: Plan: F/U S/P lap gilberto, pod 1 doing fine, discharge to day, the post-op care instruction was given, F/U Dr. Gibson 2 weeks, , Abdominal location: unspecified location Qualified Code(s): R10.9 - Unspecified abdominal pain (2) Cholelithiasis: Biliary obstruction: without biliary obstruction Cholelithiasis location: other site Qualified Code(s): K80.80 - Other cholelithiasis without obstruction (3) Acute cholecystitis due to biliary calculus: Plan: pt is a 45 year-old male who presents with 2 days history RUQ pain, IMP: acute cholecystitis, cholelithiasis, plan, I recommend to do laparoscopic cholecystectomy, possible open or cholangiogram tomorrow, D/W benefits, risks and alternatives of the surgery, t he risks - infection, bleeding, injury other organs, may need ERCP, pt understood, he agrees with the surgery, he signed informed consent, I answered all questions, NPO after MN, Admission and Anticipated Discharge Date Admission Date: December 10, 2020 Subjective F/U S/P lap gilberto, POD 1 pt is doing fine, no significant abdominal pain, tolerated diet, no nausea, no vomiting, no fever, Review of Systems Constitutional: as per Subjective / HPI Eyes: as per Subjective / HPI Respiratory: as per Subjective / HPI Cardiovascular: as per Subjective / HPI Gastrointestinal: + abdominal pain (pt had abdominal apin 6 months ago the pain is located at RUQ, and LLQ, pt has been diagnosised diverticulitis, in the past, ) Musculoskeletal: right clavicle surgery Neurologic: as per Subjective / HPI Psychiatric: as per Subjective / HPI Hematologic / Lymphatic: as per Subjective / HPI Physical Exam Constitutional: WD/WN, vitals as above Neck: trachea midline, no thyromegaly Respiratory: normal respiratory effort, lungs clear to auscultation Cardiovascular: RRR, no murmur, no edema Gastrointestinal (Abdomen): soft, mild tenderness at incision site, all incisions intact, no redness, Musculoskeletal: no cyanosis or clubbing, extremities motor strength 5/5 Neurologic: patellar DTR's 2+ bilat, sensation intact Psychiatric: A+Ox3, euthymic affect Results & Data ([facility]) Vital Signs (Past 12 Hours) Vital Signs Temp Pulse Resp BP BP Pulse Ox 12/12/20 08:37 36.7 C 57 L 20 143/78 H 97 12/12/20 08:12 36.8 C 77 20 172/101 H 98 12/12/20 05:00 36.5 C 75 16 158/92 H 94
--- NOTE | 2020-12-12 15:03 | Discharge Summary (DS) ---
DATE OF ADMISSION: 12/11/2020 DATE OF DISCHARGE: 12/12/2020. ADMITTING DIAGNOSES: Acute cholecystitis, cholelithiasis. OPERATION: Laparoscopic cholecystectomy. SURGEON: Emanuel Gibson MD. DETAILS OF DISCHARGE SUMMARY: This is 45 years old gentleman who was admitted to the hospital for [facility] [place] cholecystitis with cholelithiasis and we took the patient to the OR, we did a laparoscopic cholec ystectomy. Patient doing fine after the procedure. Patient transferred to regular floor and tolerat ed a diet. No significant abdominal pain. No nausea, no vomiting, no fever. PHYSICAL EXAMINATION: VITAL SIGNS: Temperature is 36.7, respiratory rate of 20, heart rate 57, blood pressure 143/78, O2 s aturation 97% on room air. GENERAL: Patient is alert, awake, oriented x3. HEENT: Within normal limitation. NEUROLOGICAL: Exam intact. NECK: No JVD. CHEST: Bilateral lung sounds clear. HEART: Normal S1 and S2. No murmur. ABDOMEN: Soft, mild tenderness on the incision site. No rebound pain. No distention. All incision s intact. No redness. EXTREMITIES: No edema. So, we will discharge the patient today and we gave the patient postop care instruction. Patient unde rsjosé miguelds. I will follow up the patient in 2 weeks. Job ID: [id number]
== END 2020-12-12 17:07 | disposition home or self-care (01) ==
LOC: ED 19:00 → 3E 19:00